=== PATIENT | female | born 1990 | race Caucasian/White ===

== ENCOUNTER → 2018-10-06 | Outpatient (CLI) | payer OTHER ==
[~2018-10-06] MED LIST: GADOBENATE DIMEGLUMINE 1 ML IV ONE; IOPAMIDOL 300 MG/ML 15ML VIAL IT ONE
--- NOTE | 2018-10-06 14:47 | Diagnostic Imaging Report ---
Date and Time: 10/06/2018 Procedure: Right hip arthrogram log processor operator: Dr. Merino Pre-operative diagnosis: Right psoas tendinitis Post-operative diagnosis: Right psoas tendinitis Conscious Sedation: None Additional Medications: Lidocaine 1% for local anesthesia Fluoroscopy time: 0.6 minutes Frontal Air Kerma: 26.7 mGy Contrast used: 2 cc dilute Isovue 300. 8 cc mixture of 0.1 cc gadolinium in 10 cc sterile saline Estimated blood loss: Minimal Specimens: None Implants: None DISCUSSION: Informed consent was obtained and documented in the medical record. Hand Roller Engraver radiograph of the right hip shows no acute osseous abnormalities and a well-maintained joint space. The right hip was internally rotated and the skin of the right inguinal region was prepped and draped in the standard sterile fashion. A suitable percutaneous approach to the superolateral margin of the femoral head was identified by fluoroscopy and the overlying skin marked. 1% lidocaine was infiltrated into the skin and subcutaneous tissues for local anesthesia. Then under intermittent fluoroscopic guidance a 22-gauge spinal needle was advanced to the superolateral margin of the right femoral head. A small amount of dilute Isovue 300 contrast was injected to confirm intra-articular location. In, a total of 8 cc of a mixture of 0.1 cc gadolinium and 10 cc sterile saline were slowly injected into the joint. Video Game Designer fluoroscopic images were stored. The needle was removed and a sterile dressing was applied. The patient tolerated the procedure well without immediate complication. FINDINGS: No significant arthrographic abnormality. IMPRESSION: Successful right hip arthrogram for purposes of intra-articular injection of gadolinium contrast material for hip MRI, subsequently performed and separately reported. Signed by: Dr. Tremaine Merino M.D. on 10/06/2018 2:44 PM
--- NOTE | 2018-10-06 14:47 | Diagnostic Imaging Report ---
Date and Time: 10/06/2018 Procedure: Right hip arthrogram brim greaser operator: Dr. Merino Pre-operative diagnosis: Right psoas tendinitis Post-operative diagnosis: Right psoas tendinitis Conscious Sedation: None Additional Medications: Lidocaine 1% for local anesthesia Fluoroscopy time: 0.6 minutes Frontal Air Kerma: 26.7 mGy Contrast used: 2 cc dilute Isovue 300. 8 cc mixture of 0.1 cc gadolinium in 10 cc sterile saline Estimated blood loss: Minimal Specimens: None Implants: None DISCUSSION: Informed consent was obtained and documented in the medical record. Card Clothier radiograph of the right hip shows no acute osseous abnormalities and a well-maintained joint space. The right hip was internally rotated and the skin of the right inguinal region was prepped and draped in the standard sterile fashion. A suitable percutaneous approach to the superolateral margin of the femoral head was identified by fluoroscopy and the overlying skin marked. 1% lidocaine was infiltrated into the skin and subcutaneous tissues for local anesthesia. Then under intermittent fluoroscopic guidance a 22-gauge spinal needle was advanced to the superolateral margin of the right femoral head. A small amount of dilute Isovue 300 contrast was injected to confirm intra-articular location. In, a total of 8 cc of a mixture of 0.1 cc gadolinium and 10 cc sterile saline were slowly injected into the joint. Flower Planter fluoroscopic images were stored. The needle was removed and a sterile dressing was applied. The patient tolerated the procedure well without immediate complication. FINDINGS: No significant arthrographic abnormality. IMPRESSION: Successful right hip arthrogram for purposes of intra-articular injection of gadolinium contrast material for hip MRI, subsequently performed and separately reported. Signed by: Dr. Tremaine Merino M.D. on 10/06/2018 2:44 PM
--- NOTE | 2018-10-06 15:15 | Diagnostic Imaging Report ---
TECHNIQUE: Magnetic resonance arthrogram of the right HIP was performed after intra-articular injected contrast. HISTORY: Right hip pain psoas tendinitis COMPARISON: None available. FINDINGS: Bone: No focal or infiltrative bone marrow replacing abnormality. No osteonecrosis or acute fracture. Femoroacetabular Joint: Acetabular labrum: No displaced labral tear. Articular Cartilage: No focal defect. Muscle and tendons: Iliopsoas tendon intact. Gluteal tendons appear intact. Hamstring origins appear intact. Soft tissues: Ischiofemoral space preserved. IMPRESSION: Unremarkable MRI arthrogram of the right hip. Signed by: Dr. Marty Nuñez M.D. on 10/06/2018 3:12 PM
== END ==
LOC: DX 12:06
PROVIDERS: ATTEND Orthopaedic Surgery
DX: S76.011A Strain of muscle, fascia and tendon of right hip, initial encounter (principal); M76.11 Psoas tendinitis, right hip
CPT/HCPCS: 27093; 73722; 77002; 81025; Q9967

== ENCOUNTER → 2021-08-22 | Day surgery (SDC) | payer OTHER ==
[~2021-08-22] MED LIST changes: -GADOBENATE DIMEGLUMINE 1 ML IV ONE; -IOPAMIDOL 300 MG/ML 15ML VIAL IT ONE; +OMEPRAZOLE40 MG PO; +PRENATAL CAPLE1 EACH PO
[2021-08-22 16:09] VITALS: BP 118/76
== END | disposition home or self-care (01) ==
LOC: ENDO 12:13
PROVIDERS: ATTEND Internal Medicine Gastroenterology
DX: K22.2 Esophageal obstruction (principal); K31.7 Polyp of stomach and duodenum; K29.50 Unspecified chronic gastritis without bleeding; K20.90 Esophagitis, unspecified without bleeding; K21.9 Gastro-esophageal reflux disease without esophagitis; K44.9 Diaphragmatic hernia without obstruction or gangrene; K59.09 Other constipation; D68.51 Activated protein C resistance; E28.2 Polycystic ovarian syndrome; Z88.6 Allergy status to analgesic agent; Z88.2 Allergy status to sulfonamides; Z01.812 Encounter for preprocedural laboratory examination; Z20.822 Contact with and (suspected) exposure to COVID-19; Z68.34 Body mass index [BMI] 34.0-34.9, adult; Z86.718 Personal history of other venous thrombosis and embolism; Z86.16 Personal history of COVID-19
CPT/HCPCS: 43239; 43450; 81025; C9113; U0002

== ENCOUNTER → 2022-12-24 | Outpatient (CLI) | payer OTHER | LOC: US 07:41 | PROVIDERS: ATTEND Internal Medicine Gastroenterology | DX: R10.10 Upper abdominal pain, unspecified (principal) | CPT/HCPCS: 76700 ==